=== PATIENT | male | born 2000 | race Hispanic/Latino ===

== ENCOUNTER 2021-03-19 10:12 | Emergency (ER) | payer SELFPAY ==
[2021-03-19 11:32] VITALS: BP 120/69
[2021-03-19] MEDS ORDERED: oxyCODONE /ACETAMINOPHEN 5-325MG TAB PO PRN (12:37)
[2021-03-19] MEDS ORDERED: TETANUS,DIPH,PERTUSS(ACELL) VACCINE 0.5 ML SYRINGE IM ONE (12:37)
[2021-03-19] MEDS ORDERED: SODIUM CHLORIDE 0.9% IRR 500 ML BOTTLE IR ONE (12:37)
--- NOTE | 2021-03-19 13:15 | XRay Report ---
RIGHT KNEE 4 VIEW(S) INDICATION / CLINICAL INFORMATION: deep laceration posterior knee COMPARISON: None available. FINDINGS: BONES / JOINT(S): No acute fracture or subluxation. No significant arthritis. SOFT TISSUES: Soft tissue gas in the posterior medial aspect of the knee. No radiopaque foreign body. ADDITIONAL FINDINGS: None. Signer Name: Stanley Zhao MD Signed: 03/19/2021 1:11 PM Workstation Name: [id number]
--- NOTE | 2021-03-19 13:48 | Emergency Department Report ---
- General Chief Complaint: Wound/Laceration Stated Complaint: RIGHT LEG LACERATION Time Seen by Provider: 03/19/21 12:14 Source: patient Mode of arrival: Wheelchair Limitations: No Limitations - History of Present Illness Initial Comments: Patient is a 20-year-old male who presents emergency room with complaints of a laceration to the right posterior knee that occurred just prior to arrival. Patient states that he cut cut by a trailer hitch. He states he got pinned in between the hitch and a motor. He states initially there was bleeding but has since improved. He is able to move the leg. He denies any numbness or weakness. He is unsure for the last tetanus immunization. No past medical history. No allergies to medications. - Related Data Previous Rx's Medication Instructions Recorded Last Taken Type Neomycin/Bacitracin/Polymyxinb 1 applicatio TP BID #14 oint...g. 03/19/21 Unknown Rx [Triple Antibiotic Ointment] cephALEXin [Keflex] 500 mg PO QID 7 Days #28 capsule 03/19/21 Unknown Rx Allergies Allergy/AdvReac Type Severity Reaction Status Date / Time No Known Allergies Allergy Unverified 03/19/21 11:29 ED Review of Systems ROS: Stated complaint: RIGHT LEG LACERATION Other details as noted in HPI Comment: All other systems reviewed and negative ED Past Medical Hx - Past Medical History Previous Medical History?: No - Surgical History Past Surgical History?: No - Medications Home Medications: Home Medications Medication Instructions Recorded Confirmed Last Taken Type Neomycin/Bacitracin/Polymyxinb 1 applicatio TP BID #14 oint...g. 03/19/21 Unknown Rx [Triple Antibiotic Ointment] cephALEXin [Keflex] 500 mg PO QID 7 Days #28 capsule 03/19/21 Unknown Rx ED Physical Exam - General Limitations: No Limitations General appearance: alert, in no apparent distress - Head Head exam: Present: atraumatic, normocephalic - Eye Eye exam: Present: normal appearance - ENT ENT exam: Present: mucous membranes moist - Respiratory Respiratory exam: Absent: respiratory distress, accessory muscle use - Extremities Exam Extremities exam: Present: other (6 cm deep laceration present to the right posterior knee, no muscle or tendon involvement, able to visualize the tendon sheath, no foreign bodies visualized, FROM of the RLE, neurovascularly intact) - Neurological Exam Neurological exam: Present: alert, oriented X3 - Psychiatric Psychiatric exam: Present: normal affect, normal mood - Skin Skin exam: Present: warm, dry ED Course Vital Signs 03/19/21 03/19/21 11:29 15:08 Temperature 98 F Pulse Rate 77 Respiratory 16 14 Rate Blood Pressure 120/69 [Right] O2 Sat by Pulse 100 Oximetry - Laceration /Wound Repair Right Posterior Leg Wound Location: lower extremity (right posterior knee ) Wound Length (cm): 6 Wound's Depth, Shape: superficial Wound Explored: clean Irrigated w/ Saline (ccs): 500 Betadine Prep?: Yes Volume Anesthetic (ccs): 12 (2% lidocaine without epi) Wound Debrided: extensive Wound Repaired With: sutures Suture Size/Type: 3:0 Number of Sutures: 10 (ethilon ) Layer Closure?: Yes Deep Layer Suture Size/Type: 3:0 Number Deep Layer Sutures: 3 (vicryl ) Sterile Dressing Applied?: Yes Progress: Verbal consent obtained by patient Risk and alternatives discussed Wound thoroughly irrigated with saline and syringe and scrubbed with Betadine, no muscle or tendon involvement, no foreign bodies visualized or palpable, 12 cc of 2% lidocaine without epinephrine used anesthetic, Betadine prep again, sterile drapes applied, sterile gloves worn, subcutaneous tissue layer closed with 3-0 Vicryl, one running suture placed, 2 simple interrupted sutures placed, skin closure with 3-0 Ethilon, 10 sutures placed, patient tolerated well, no complications, bleeding controlled, sterile dressing applied ED Medical Decision Making - Radiology Data Radiology results: report reviewed Ordering Physician: BHARAT JOHNSON Date of Service: 03/19/21 Procedure(s): XR knee 4+V RT Accession Number(s): [id number] cc: BHARAT JOHNSON Fluoro Time In Minutes: RIGHT KNEE 4 VIEW(S) INDICATION / CLINICAL INFORMATION: deep laceration posterior knee COMPARISON: None available. FINDINGS: BONES / JOINT(S): No acute fracture or subluxation. No significant arthritis. SOFT TISSUES: Soft tissue gas in the posterior medial aspect of the knee. No radiopaque foreign body. ADDITIONAL FINDINGS: None. Signer Name: Stanley Zhao MD Signed: 03/19/2021 1:11 PM Workstation Name: [id number] Transcribed By: DT Dictated By: Duane Zhao MD Electronically Authenticated By: Duane Zhao MD Signed Date/Time: 03/19/211310 DD/ 09 TD/TT: - Medical Decision Making Patient is a 20-year-old male who presents emergency room with complaints of a laceration to the right posterior knee that occurred just prior to arrival. Patient states that he cut cut by a trailer hitch. He states he got pinned in between the hitch and a motor. He states initially there was bleeding but has since improved. He is able to move the leg. He denies any numbness or weakness. He is unsure for the last tetanus immunization. No past medical history. No allergies to medications. Vitals are normal. On exam:6 cm deep laceration present to the right posterior knee, no muscle or tendon involvement, able to visualize the tendon sheath, no foreign bodies visualized, FROM of the RLE, neurovascularly intact. X-ray right knee: BONES / JOINT(S): No acute fracture or subluxation. No significant arthritis. SOFT TISSUES: Soft tissue ga s in the posterior medial aspect of the knee. No radiopaque foreign body. ADDITIONAL FINDINGS: None. Wound extensively irrigated with saline and scrubbed with Betadine and repaired per procedure note. Patient given prescription for medications. Advised patient Please keep area clean, dry, covered. Wash with antibacterial soap and water pat dry. Please take medication as prescribed. No hot tub, no pool, no soaking in water. Showering is fine. Sutures need to be removed in 14 days. Follow-up with your primary doctor. Return to emergency room immediately for any new or worsening symptoms or any signs of infection. may alternate tylenol or ibuprofen as needed for pain. Critical care attestation.: If time is entered above; I have spent that time in minutes in the direct care of this critically ill patient, excluding procedure time. ED Disposition Clinical Impression: Laceration of right lower leg Qualifiers: Encounter type: initial encounter Qualified Code(s): S81.811A - Laceration without foreign body, right lower leg, initial encounter Disposition: DC- TO HOME OR SELFCARE Is pt being admited?: No Does the pt Need Aspirin: No Condition: Stable Instructions: Laceration Care, Adult Additional Instructions: Please keep area clean, dry, covered. Wash with antibacterial soap and water pat dry. Please take medication as prescribed. No hot tub, no pool, no soaking in water. Showering is fine. Sutures need to be removed in 14 days. Follow- up with your primary doctor. Return to emergency room immediately for any new or worsening symptoms or any signs of infection. may alternate tylenol or ibuprofen as needed for pain. Prescriptions: cephALEXin [Keflex] 500 mg PO QID 7 Days #28 capsule Neomycin/Bacitracin/Polymyxinb [Triple Antibiotic Ointment] 1 applicatio TP BID #14 oint...g. Referrals: [facility] [Other] - 3-5 Days Time of Disposition: 14:49 Print Language: POLISH
[2021-03-19] MEDS ORDERED: LIDOCAINE (2%) 20 MG/1 ML VIAL 20 ML MDV INFILTRATI ONE (13:57)
== END 2021-03-19 15:32 | disposition home or self-care (01) ==
LOC: ED 10:12
DX: S81.011A Laceration without foreign body, right knee, initial encounter (principal); Z79.899 Other long term (current) drug therapy; W26.8XXA Contact with other sharp object(s), not elsewhere classified, initial encounter; Y93.89 Activity, other specified; Y92.89 Other specified places as the place of occurrence of the external cause; Y99.8 Other external cause status
CPT/HCPCS: 90471; 90715; 99283